=== PATIENT | female | born 1955 | race Caucasian/White ===

== ENCOUNTER 2023-04-26 10:05 | Outpatient (CLI) | payer OTHER, SELFPAY ==
--- NOTE | ~2023-04-26 | MM_ITS ---
Corrected Report Order # Associated 05/01/2023 [facility] This report was recreated on 05/01/23. Original report was signed by Facundo Sorto M.D. on 04/27/2023 8:52 OFFICE ADMINISTRATION. EXAMINATION: MM diagnostic lev BI w yvette; US breast BI limited HISTORY: Palpable lumps in the upper outer quadrants of the breasts and bilateral axillae TECHNIQUE: Craniocaudal, mediolateral, and mediolateral oblique 3-D tomosynthesis images of the breasts were performed and synthetic 2-D images were generated. CAD analysis was submitted and interpreted. High resolution limited bilateral breast ultrasound was performed. COMPARISON: No prior mammogram is currently available for comparison at this institution. BREAST PARENCHYMAL COMPOSITION: There are scattered areas of fibroglandular density. FINDINGS: MAMMOGRAPHIC FINDINGS: No suspicious mass, calcification, or architectural distortion are identified in either breast to suggest malignancy. No mammographic correlate is identified in either breast for the patient's reported palpable abnormalities. ULTRASOUND: No suspicious cystic or solid mass is identified in either breast to correlate with the reported palpable abnormalities of concern. Benign lymph nodes are identified in the left axilla. IMPRESSION: 1. No specific mammographic or sonographic correlate is identified for the reported palpable abnormalities in the upper outer quadrants of the breasts and bilateral axillae. Further evaluation at this time should be based on clinical assessment. Continued follow-up physical examination is recommended. 2. Recommend routine screening mammography in one year. BI-RADS Category 1: Negative Reviewed, dictated and finalized at location [facility]. [facility] IMPRESSION: 1. No specific mammographic or sonographic correlate is identified for the repo rted palpable abnormalities in the upper outer quadrants of the breasts and janna ateral axillae. Further evaluation at this time should be based on clinical ass essment. Continued follow-up physical examination is recommended. 2. Recommend routine screening mammography in one year. BI-RADS Category 1: Negative
== END 2023-04-26 10:06 | disposition home or self-care (01) ==
PROVIDERS: PCP Internal Medicine; Visit Provider Obstetrics & Gynecology
DX: N63.0 Unspecified lump in unspecified breast (principal)
CPT/HCPCS: 76642; 77062; 77066; G0279